=== PATIENT | female | born 2000 | race African-American/Black ===

== ENCOUNTER 2019-01-07 20:38 | Emergency (ER) | payer BC ==
[2019-01-07] MEDS ORDERED: Ketorolac INJ* 30 MG/ML 1 ML VIAL IM ONE (23:09)
[2019-01-07 23:17] LABS: Urine Appearance Cloudy; Urine Bacteria Absent (Absent); Urine Bilirubin Negative (Negative); Urine Blood 3+ (Negative); Urine Color Yellow; Urine Glucose Negative (Negative); Urine Ketones 1+ (Negative); Urine Nitrite Negative (Negative); Urine Protein 1+(30 mg/dL) (Negative); Urine Red Blood Cell 2+(6-10/hpf) (Absent); Urine Specific Gravity 1.025 (1.010-1.030); Urine Squamous Epithelial Cell Present (Absent); Urine Urobilinogen Negative (Negative); Urine White Blood Cell 2+(11-20/hpf) (Absent)
[2019-01-07 23:34] LABS: ABS Basophils 0 10^3/ul (0-0.2); ABS Eosinophils 0 10^3/ul (0-0.6); ABS Monocytes 0.4 10^3/ul (0-0.8); ABS Neutrophils 12.8 10^3/ul (1.5-7.7); ABS Nucleated RBC 0 10^3/ul; Eosinophil % 0.1 %; Hematocrit 40 % (35-47); Hemoglobin 13.1 g/dl (12.0-16.0); Lymphocyte % 7.1 %; Mean Corpuscular HGB Conc 33 g/dl (31-36); Mean Corpuscular Hemoglobin 29 pg (27-31); Mean Corpuscular Volume 89 fL (80-97); Mean Platelet Volume 8.9 fL (7.4-10.4); Nucleated Red Blood Cells % 0; Platelet Count 269 10^3/ul (150-450); Red Blood Count 4.49 10^6/ul (4.00-5.40); Red Cell Distribution Width 14 % (10.5-15); White Blood Count 14.2 10^3/ul (3.5-10.8)
[2019-01-07 23:44] LABS: ALT 11 U/L (7-52); AST 18 U/L (13-39); Albumin 4.7 g/dL (3.2-5.2); Albumin/Globulin Ratio 1.3 (1-3); Alkaline Phosphatase 66 U/L (34-104); Anion Gap 8 mmol/L (2-11); BUN/Creatinine Ratio 19.4 (8-20); Blood Urea Nitrogen 12 mg/dL (6-24); C Reactive Protein < 1.00 mg/L (<8.01); CO2 Carbon Dioxide 25 mmol/L (22-32); Calcium 9.6 mg/dL (8.6-10.3); Chloride 105 mmol/L (101-111); Globulin 3.7 g/dL (2-4); Glucose 91 mg/dL (70-100); Potassium 3.6 mmol/L (3.5-5.0); Sodium 138 mmol/L (135-145); Total Protein 8.4 g/dL (6.4-8.9)
[2019-01-07 23:50] LABS: HCG Pregnancy < 0.60 mIU/mL
[2019-01-08] MEDS ORDERED: Ciprofloxacin TAB* 500 MG PO ONE (00:14)
--- NOTE | 2019-01-08 00:16 | ED ---
GI/ HPI - HPI Summary HPI Summary: 18-year-old female presents with lower abdominal pain today. She states that that she developed the pain after her period started. She states it feels like cramps. She states she has never had pain this intense. She is not currently on control. She states she's been nauseous but no vomiting. She admits to urgency and frequency and pressure. No flank pain. No diarrhea or constipation. No previous belly surgeries. No abnormal vaginal discharge. - History of Current Complaint Chief Complaint: EDAbdPain Time Seen by Provider: 01/07/19 22:56 Stated Complaint: ABD PAIN Pain Intensity: 10 - Allergy/Home Medications Allergies/Adverse Reactions: Allergies Allergy/AdvReac Type Severity Reaction Status Date / Time No Known Allergies Allergy Verified 01/07/19 20:50 PMH/Surg Hx/FS Hx/Imm Hx Cardiovascular History: Denies: Hx Myocardial Infarction Infectious Disease History: No Infectious Disease History: Denies: Traveled Outside the [place] in Last 30 Days - Family History Known Family History: Positive: Non-Contributory - Social History Substance Use Type: Reports: None Smoking Status (MU): Never Smoked Tobacco Review of Systems Negative: Fever Negative: Chest Pain Negative: Shortness Of Breath Positive: Abdominal Pain, Vomiting, Nausea. Negative: Diarrhea Positive: dysuria. Negative: flank pain All Other Systems Reviewed And Are Negative: Yes Physical Exam Triage Information Reviewed: Yes Vital Signs On Initial Exam: Initial Vitals Temp Pulse Resp BP Pulse Ox 98.2 F 75 20 104/72 99 01/07/19 20:40 01/07/19 20:40 01/07/19 20:40 01/07/19 20:40 01/07/19 20:40 Vital Signs Reviewed: Yes Appearance: Positive: Well-Appearing Skin: Positive: Warm, Dry Head/Face: Positive: Normal Head/Face Inspection Eyes: Positive: Normal, Conjunctiva Clear ENT: Positive: Pharynx normal Respiratory/Lung Sounds: Positive: Clear to Auscultation, Breath Sounds Present Cardiovascular: Positive: Normal, RRR Abdomen Description: Positive: Soft, Other: - lower abd pain, equal both sides, no rebound Bowel Sounds: Positive: Present Musculoskeletal: Positive: Normal Neurological: Positive: Normal Psychiatric: Positive: Normal Diagnostics - Vital Signs Vital Signs Temp Pulse Resp BP Pulse Ox 01/07/19 20:40 98.2 F 75 20 104/72 99 - Laboratory Lab Results: Lab Results 01/07/19 01/07/19 01/07/19 Range/Units 23:02 23:17 23:17 WBC 14.2 H (3.5-10.8) 10^3/ul RBC 4.49 (4.00-5.40) 10^6/ul Hgb 13.1 (12.0-16.0) g/dl Hct 40 (35-47) % MCV 89 (80-97) fL MCH 29 (27-31) pg MCHC 33 (31-36) g/dl RDW 14 (10.5-15) % Plt Count 269 (150-450) 10^3/ul MPV 8.9 (7.4-10.4) fL Neut % (Auto) 90.0 % Lymph % (Auto) 7.1 % [place] % (Auto) 2.5 % Eos % (Auto) 0.1 % Baso % (Auto) 0.3 % Absolute Neuts (auto) 12.8 H (1.5-7.7) 10^3/ul Absolute Lymphs (auto) 1.0 (1.0-4.8) 10^3/ul Absolute Monos (auto) 0.4 (0-0.8) 10^3/ul Absolute Eos (auto) 0 (0-0.6) 10^3/ul Absolute Basos (auto) 0 (0-0.2) 10^3/ul Absolute Nucleated RBC 0 10^3/ul Nucleated RBC % 0 Sodium 138 (135-145) mmol/L Potassium 3.6 (3.5-5.0) mmol/L Chloride 105 (101-111) mmol/L Carbon Dioxide 25 (22-32) mmol/L Anion Gap 8 (2-11) mmol/L BUN 12 (6-24) mg/dL Creatinine 0.62 (0.51-0.95) mg/dL Est GFR ( Amer) 150.0 (>60) Est GFR (Non-Af Amer) 124.0 (>60) BUN/Creatinine Ratio 19.4 (8-20) Glucose 91 (70-100) mg/dL Calcium 9.6 (8.6-10.3) mg/dL Total Bilirubin 0.30 (0.2-1.0) mg/dL AST 18 (13-39) U/L ALT 11 (7-52) U/L Alkaline Phosphatase 66 (34-104) U/L C-Reactive Protein < 1.00 (<8.01) mg/L Total Protein 8.4 (6.4-8.9) g/dL Albumin 4.7 (3.2-5.2) g/dL Globulin 3.7 (2-4) g/dL Albumin/Globulin Ratio 1.3 (1-3) Lipase 21 (11.0-82.0) U/L Beta HCG, Quant < 0.60 mIU/mL Urine Color Yellow Urine Appearance Cloudy Urine pH 7.0 (5-9) Ur Specific [place] 1.025 (1.010-1.030) Urine Protein 1+(30 mg/dl) A (Negative) Urine Ketones 1+ A (Negative) Urine Blood 3+ A (Negative) Urine Nitrate Negative (Negative) Urine Bilirubin Negative (Negative) Urine Urobilinogen Negative (Negative) Ur Leukocyte Esterase Trace A (Negative) Urine WBC (Auto) 2+(11-20/hpf) A (Absent) Urine RBC (Auto) 2+(6-10/hpf) A (Absent) Ur Squamous Epith Cells Present A (Absent) Urine Bacteria Absent (Absent) Urine Glucose Negative (Negative) Result Diagrams: 01/07/19 23:17 01/07/19 23:17 Lab Statement: Any lab studies that have been ordered have been reviewed, and results considered in the medical decision making process. Re-Evaluation - Re-Evaluation First Eval Change: Improved Comment: feeling better after toradol, unable to tolerate u/s GIGU Course/Dx - Course Course Of Treatment: 18-year-old female presents with lower abdominal pain today. She states that that she developed the pain after her period started. She states it feels like cramps. She states she has never had pain this intense. She is not currently on control. She states she's been nauseous but no vomiting. She admits to urgency and frequency and pressure. No flank pain. No diarrhea or constipation. No previous belly surgeries. No abnormal vaginal discharge. On exam tenderness equally in bilateral lower quadrants. No rebound. wbc 14. CRP is normal. Patient was unable to tolerate ultrasound but is sitting laughing in the room. Urine shows potentially UTIs so we'll treat with Cipro. Gave Toradol and pain improved. Told to follow-up with primary. Patient understands agrees the plan. - Diagnoses Differential Diagnoses - Female: Ovarian Cyst, STD, Urinary Tract Infection Provider Diagnoses: UTI (urinary tract infection), Pelvic pain Discharge - Sign-Out/Discharge Documenting (check all that apply): Patient Departure Patient Received Moderate/Deep Sedation with Procedure: No - Discharge Plan Condition: Good Disposition: HOME Prescriptions: Ciprofloxacin TAB* [Cipro 500 MG TAB*] 500 mg PO BID #9 tab Patient Education Materials: Urinary Tract Infection in Women (ED) Referrals: [facility] [Outside] Additional Instructions: Take Cipro twice a day for 5 days drink plenty of fluids Take tyenlol or ibuprofen every 6 hours as needed for pain est care with primary Return to ED if develop any new or worsening symptoms - Billing Disposition and Condition Condition: GOOD Disposition: Home
[2019-01-08 00:23] VITALS: BP 121/60
== END 2019-01-08 00:23 | disposition home or self-care (01) ==
LOC: ED 20:38
DX: N39.0 Urinary tract infection, site not specified (principal); R10.2 Pelvic and perineal pain; R11.0 Nausea
CPT/HCPCS: 36415; 80053; 81003; 81015; 83690; 84702; 85025; 86140; 87086; 99282; A9270-GY

== ENCOUNTER 2021-03-01 15:05 | Inpatient (IN) ==
[2021-03-01] MEDS ORDERED: Lactated Ringers 1000 ml BAG 1,000 ML IV ONE (17:34)
[2021-03-01 18:03] LABS: ABS Basophils 0.1 10^3/ul (0-0.2); ABS Lymphocytes 1.2 10^3/ul (1.0-4.8); ABS Monocytes 0.9 10^3/ul (0-0.8); ABS Neutrophils 8.1 10^3/ul (1.5-7.7); Eosinophil % 0.2 %; Hematocrit 34 % (35-47); Hemoglobin 11.3 g/dL (12.0-16.0); Lymphocyte % 11.7 %; Mean Corpuscular HGB Conc 33 g/dL (31-36); Mean Corpuscular Hemoglobin 31 pg (27-31); Mean Corpuscular Volume 93 fL (80-97); Mean Platelet Volume 9.1 fL (7.4-10.4); Nucleated Red Blood Cells % 0.1; Platelet Count 244 10^3/uL (150-450); Red Blood Count 3.67 10^6 /uL (3.70-4.87); Red Cell Distribution Width 14 % (10-15); White Blood Count 10.3 10^3/uL (3.5-10.8)
[2021-03-01] MEDS ORDERED: Penicillin G Potassium IV 5,000,000 UNITS in NS 0.9% 100 ml BAG 100 ML IVPB ONE (18:30)
[2021-03-01 20:06] LABS: Urine Benzodiazepine Screen None Detected (None Detect); Urine Cannabinoids Screen None Detected (None Detect); Urine Opiates Screen None Detected (None Detect)
[2021-03-01] MEDS ORDERED: OBEPIDURAL 250 ML EPIDURAL ONE (22:32)
[2021-03-01] MEDS: Penicillin G Potassium IV 3,000,000 UNITS in NS 0.9% 100 ml BAG 100 ML IVPB SCH (22:37)
[2021-03-01] MEDS ORDERED: fentaNYL 100 mcg/2 ml 50 MCG/ML VIAL ONE (22:42)
[2021-03-02] MEDS ORDERED: Phenylephrine 40 mcg/mL 10mL (400mcg) SYRINGE IV PUSH PRN ×2 (00:09)
[2021-03-02] MEDS ORDERED: EPHEDrine (Pressors) 50 MG/ML VIAL IV PUSH PRN ×2 (00:09)
[2021-03-02] MEDS ORDERED: Sodium Citrate/Citric Acid LIQ 15 ML UDC PO PRN (00:09)
[2021-03-02] MEDS ORDERED: Lactated Ringers 1000 ml BAG 1,000 ML IV ONE (00:09)
[2021-03-02] MEDS ORDERED: Lactated Ringers 1000 ml BAG 1,000 ML IV SCH (01:00)
[2021-03-02 01:26] LABS: ABS Lymphocytes 1.1 10^3/ul (1.0-4.8); ABS Monocytes 0.8 10^3/ul (0-0.8); ABS Neutrophils 9.1 10^3/ul (1.5-7.7); Eosinophil % 0.1 %; Hematocrit 35 % (35-47); Hemoglobin 11.3 g/dL (12.0-16.0); Lymphocyte % 9.7 %; Mean Corpuscular HGB Conc 33 g/dL (31-36); Mean Corpuscular Hemoglobin 30 pg (27-31); Mean Corpuscular Volume 93 fL (80-97); Mean Platelet Volume 8.9 fL (7.4-10.4); Platelet Count 240 10^3/uL (150-450); Red Blood Count 3.71 10^6 /uL (3.70-4.87); Red Cell Distribution Width 14 % (10-15)
[2021-03-02 01:41] LABS: Albumin 3.3 g/dL (3.2-5.2); Albumin/Globulin Ratio 1.1 (1-3); BUN/Creatinine Ratio 8.7 (8-20); Calcium 8.7 mg/dL (8.6-10.3); EGFR Non-African American 107.4 (>60); Globulin 2.9 g/dL (2-4); Potassium 4.1 mmol/L (3.5-5.0); Total Bilirubin 0.5 mg/dL (0.2-1.0); Total Protein 6.2 g/dL (6.4-8.9); Uric Acid 3.7 mg/dL (2.3-6.6)
[2021-03-02] MEDS: Penicillin G Potassium IV 3,000,000 UNITS in NS 0.9% 100 ml BAG 100 ML IVPB SCH ×5 (02:46→20:18)
[2021-03-02 03:45] LABS: Urine Appearance Cloudy; Urine Bilirubin Negative (Negative); Urine Blood 3+ (Negative); Urine Glucose Negative (Negative); Urine Ketones 1+ (Negative); Urine Nitrite Negative (Negative); Urine Protein 1+(30 mg/dL) (Negative); Urine Specific Gravity 1.009 (1.002-1.030); Urine Urobilinogen Negative (Negative)
[2021-03-02 03:51] LABS: Urine Bacteria 1+ (Absent); Urine Red Blood Cell 3+(>10/hpf) (Absent); Urine White Blood Cell 3+(>20/hpf) (Absent)
[2021-03-02] MEDS ORDERED: Oxytocin in LR 20 UNITS/1,000 ML BAG IVPB SCH (04:00)
[2021-03-02] MEDS ORDERED: fentaNYL 100 mcg/2 ml 50 MCG/ML VIAL ONE ×4 (05:43→20:13)
[2021-03-02 06:18] LABS: Urine Color Red
[2021-03-02] MEDS ORDERED: Bupivacaine 0.25% SDV PF 10 ML VIAL INJ ONE ×3 (09:55→20:13)
[2021-03-02] MEDS ORDERED: Sterile Water for Inj 10 ML ONE ×3 (09:55→20:13)
[2021-03-02] MEDS ORDERED: Ondansetron 4 mg VIAL 2 MG/ML 2 ml VIAL IV PRN (10:17)
[2021-03-02] MEDS ORDERED: diPHENhydraMINE IV 50 MG/ML 1 ml VIAL (BENADRYL) IV PRN (13:07)
[2021-03-02] MEDS ORDERED: Bupivacaine 0.5% SDV PF 30ML VIAL ONE (22:06)
[2021-03-03] MEDS: Penicillin G Potassium IV 3,000,000 UNITS in NS 0.9% 100 ml BAG 100 ML IVPB SCH ×2 (01:50→14:16)
[2021-03-03] MEDS ORDERED: ceFOXitin 2 GM IVPREMIX 2 GM/50 ML BAG IVPB ONE (02:36)
[2021-03-03] MEDS ORDERED: ceFOXitin 2 GM IVPREMIX 2 GM/50 ML BAG ONE (02:42)
[2021-03-03] MEDS ORDERED: Morphine PF AMP (0.5MG/ML) 5 MG/10 ML AMP ONE (02:46)
[2021-03-03] MEDS ORDERED: Phenylephrine 40 mcg/mL 10mL (400mcg) SYRINGE ONE (02:46)
[2021-03-03] MEDS ORDERED: Oxytocin 10 UNITS/ML 1 ML VIAL ONE ×2 (03:34)
[2021-03-03] MEDS ORDERED: Dibucaine 1% OINT 28.35 GM TUBE PR PRN (04:20)
[2021-03-03] MEDS ORDERED: Glycerin ADULT 2.4 gm SUPP PR PRN (04:20)
[2021-03-03] MEDS ORDERED: Witch Hazel PAD JAR TOPICAL PRN (04:20)
[2021-03-03] MEDS ORDERED: Lactated Ringers 1000 ml BAG 1,000 ML IV SCH (05:00)
[2021-03-03] MEDS ORDERED: Methylergonovine 0.2 mg AMPULE 1 ml AMP ONE ×2 (05:14→10:15)
[2021-03-03] MEDS: OBEPIDURAL 250 ML EPIDURAL SCH ×2 (14:07→14:14)
[2021-03-04 06:49] LABS: Hematocrit 20 % (35-47); Hemoglobin 6.7 g/dL (12.0-16.0); Mean Corpuscular HGB Conc 33 g/dL (31-36); Mean Corpuscular Hemoglobin 31 pg (27-31); Mean Corpuscular Volume 92 fL (80-97); Mean Platelet Volume 8.5 fL (7.4-10.4); Platelet Count 177 10^3/uL (150-450); Red Blood Count 2.21 10^6 /uL (3.70-4.87); Red Cell Distribution Width 14 % (10-15); White Blood Count 20.4 10^3/uL (3.5-10.8)
[2021-03-04 07:32] LABS: ABS Eosinophils 0.1 10^3/ul (0-0.6); ABS Lymphocytes 1.7 10^3/ul (1.0-4.8); ABS Monocytes 2.1 10^3/ul (0-0.8); ABS Neutrophils 16.5 10^3/ul (1.5-7.7); Eosinophil % 0.3 %; Lymphocyte % 8.3 %
[2021-03-05 10:16] LABS: Red Blood Count 1.95 10^6 /uL (3.70-4.87); White Blood Count 12.7 10^3/uL (3.5-10.8)
[2021-03-05 10:17] LABS: ABS Eosinophils 0.1 10^3/ul (0-0.6); ABS Lymphocytes 1.4 10^3/ul (1.0-4.8); ABS Monocytes 0.9 10^3/ul (0-0.8); ABS Neutrophils 10.4 10^3/ul (1.5-7.7); Hematocrit 18 % (35-47); Lymphocyte % 10.6 %; Mean Corpuscular HGB Conc 33 g/dL (31-36); Mean Corpuscular Hemoglobin 30 pg (27-31); Mean Corpuscular Volume 92 fL (80-97); Mean Platelet Volume 7.9 fL (7.4-10.4); Platelet Count 230 10^3/uL (150-450); Red Cell Distribution Width 14 % (10-15)
[2021-03-05] MEDS ORDERED: Lidocaine 2.5%/Prilocain 2.5% 5 GM TUBE ONE (10:56)
[2021-03-06 06:49] LABS: ABS Basophils 0.1 10^3/ul (0-0.2); ABS Eosinophils 0.2 10^3/ul (0-0.6); ABS Monocytes 0.9 10^3/ul (0-0.8); ABS Neutrophils 8.8 10^3/ul (1.5-7.7); Hematocrit 23 % (35-47); Hemoglobin 7.9 g/dL (12.0-16.0); Lymphocyte % 16.7 %; Mean Corpuscular HGB Conc 35 g/dL (31-36); Mean Corpuscular Hemoglobin 31 pg (27-31); Mean Corpuscular Volume 89 fL (80-97); Mean Platelet Volume 8.3 fL (7.4-10.4); Platelet Count 223 10^3/uL (150-450); Red Blood Count 2.57 10^6 /uL (3.70-4.87); Red Cell Distribution Width 14 % (10-15); White Blood Count 12.1 10^3/uL (3.5-10.8)
[2021-03-06 08:17] LABS: Hemoglobin 5.9 g/dL (12.0-16.0)
[2021-03-06 10:08] VITALS: BP 113/66
== END 2021-03-06 11:57 | disposition home or self-care (01) | DRG 540 ==
LOC: MCHOBOUT 15:05 → MCHOB 17:34
PROVIDERS: ADMIT Midwife; ATTEND Obstetrics & Gynecology